=== PATIENT | male | born 1935 | race Caucasian/White ===

== ENCOUNTER 2021-12-06 14:58 | Inpatient (IN) | payer MEDICARE, OTHER ==
[2021-12-06 15:56] LABS: #Monocytes 0.6 10x3/uL (0.0-1.1); #Neutrophils 4.7 10x3/uL (1.5-8.4); %Basophils 0.5 % (0.0-2.0); %Eosinophils 0.5 % (0.0-6.0); %Lymphocytes 17.3 % (18.0-47.0); %Monocytes 9.3 % (0.0-10.0); %Neutrophils 72.1 % (40.0-75.0); Mean Corpuscular HGB CONC 32.8 g/dL (32.0-36.0); Mean Corpuscular Hemoglobin 30.8 pg (27.0-33.0); Mean Corpuscular Volume 93.8 fl (81.2-95.1); Mean Platelet Volume 11.5 fl (7.4-10.4); Platelet Count 166 10x3/uL (150-450); RBC Distribution Width 14.1 % (11.5-14.5); White Blood Cell (WBC) Count 6.6 10x3/uL (3.5-10.5)
[2021-12-06 16:21] LABS: ALT (SGPT) 55 U/L (8-55); AST (SGOT) 33 U/L (5-34); Albumin 3.5 g/dL (3.4-4.8); Alkaline Phosphatase 59 U/L (40-110); Anion Gap 12 mmol/L (10-20); BUN (Urea Nitrogen) 19 mg/dL (8.4-25.7); Bilirubin, Total 1.9 mg/dL (0.2-1.2); Calc. Creatinine Clearance 0 mL/min (70-130); Calcium 8.5 mg/dL (7.8-10.44); Carbon Dioxide 28 mmol/L (23-31); Chloride 106 mmol/L (98-107); Glucose 137 mg/dL (83-110); Magnesium 1.9 mg/dL (1.6-2.6); Potassium 4.4 mmol/L (3.5-5.1); Protein, Total 5.5 g/dL (5.8-8.1); Sodium 142 mmol/L (136-145)
[2021-12-06 16:41] LABS: CKMB 4.3 ng/mL (0-6.6)
[2021-12-06] MEDS ORDERED: Enoxaparin Sodium 80 MG/0.8 ML SYRINGE ONE (18:55)
[2021-12-06] MEDS ORDERED: Diltiazem 125 MG/25 ML ONE (20:21)
[2021-12-06 21:16] LABS: SARS-CoV-2 NAA Rapid Test Not Detected (NotDetected)
[2021-12-06] MEDS ORDERED: Diltiazem 125 MG in Sodium Chloride 0.9% 100 ML IVPB SCH (23:00)
[2021-12-06] MEDS ORDERED: Furosemide 40 MG/4 ML VIAL SLOW IVP SCH (23:00)
[2021-12-06 23:30] LABS: Troponin I 0.051 ng/mL (< 0.028)
[2021-12-07 01:22] VITALS: BMI 21.4
[2021-12-07 04:55] LABS: #Eosinphils 0.1 10x3/uL (0.0-0.5); #Monocytes 0.5 10x3/uL (0.0-1.1); #Neutrophils 3.6 10x3/uL (1.5-8.4); %Basophils 0.4 % (0.0-2.0); %Eosinophils 1.1 % (0.0-6.0); %Lymphocytes 22.5 % (18.0-47.0); %Monocytes 9.1 % (0.0-10.0); %Neutrophils 66.5 % (40.0-75.0); Hemoglobin 15.8 g/dL (13.5-17.5); Mean Corpuscular HGB CONC 32.7 g/dL (32.0-36.0); Mean Corpuscular Hemoglobin 30.9 pg (27.0-33.0); Mean Corpuscular Volume 94.3 fl (81.2-95.1); Platelet Count 161 10x3/uL (150-450); RBC Distribution Width 13.8 % (11.5-14.5); Red Blood Cell (RBC) Count 5.12 10x6/uL (4.32-5.72); White Blood Cell (WBC) Count 5.4 10x3/uL (3.5-10.5)
[2021-12-07 05:26] LABS: Anion Gap 16 mmol/L (10-20); BUN (Urea Nitrogen) 20 mg/dL (8.4-25.7); Calc. Creatinine Clearance 61 mL/min (70-130); Calcium 8.6 mg/dL (7.8-10.44); Carbon Dioxide 23 mmol/L (23-31); Chloride 108 mmol/L (98-107); Glucose 135 mg/dL (83-110); Potassium 3.7 mmol/L (3.5-5.1); Sodium 143 mmol/L (136-145)
[2021-12-07] MEDS ORDERED: Zolpidem Tartrate 5 MG TAB PO PRN (07:16)
[2021-12-07] MEDS ORDERED: Senokot S 8.6-50 MG TAB PO PRN (07:16)
[2021-12-07] MEDS ORDERED: Artificial Tear Sol 15 ML BOT EA EYE PRN (07:16)
[2021-12-07] MEDS ORDERED: Sodium Chloride 0.65% Nasal 44 ML BOT EA NARE PRN (07:16)
[2021-12-07] MEDS ORDERED: Loperamide HCl 2 MG CAP PO PRN (07:16)
[2021-12-07] MEDS ORDERED: Acetaminophen 500 MG TAB PO PRN (07:16)
[2021-12-07] MEDS ORDERED: hydrALAZINE 20 MG/ML VIAL SLOW IVP PRN (07:16)
[2021-12-07] MEDS ORDERED: Calcium Carbonate 500 MG ChewTAB PO PRN (07:16)
[2021-12-07] MEDS ORDERED: Ondansetron ODT 4 MG TAB PO PRN (07:16)
[2021-12-07] MEDS ORDERED: HYDROcodone/Acetaminophen 5/325 mg Tablet PO PRN (07:16)
[2021-12-07] MEDS ORDERED: Ondansetron PF 4 MG/2 ML Vial IVP PRN (07:16)
[2021-12-07] MEDS ORDERED: Hydrocerin (Eucerin) Cream 120 gm Jar TOP PRN (07:16)
[2021-12-07] MEDS ORDERED: Loratadine 10 MG TAB PO PRN (07:16)
[2021-12-07] MEDS ORDERED: Bisacodyl 5 MG TAB PO PRN (07:16)
[2021-12-07] MEDS ORDERED: GUAIFENESIN SF SOLN 200 MG/10 ML UDCUP PO PRN (07:16)
[2021-12-07] MEDS ORDERED: Enoxaparin Sodium 80 MG/0.8 ML SYRINGE SC SCH ×2 (08:00→21:00)
[2021-12-07] MEDS ORDERED: Potassium Chloride 20 MEQ TAB PO SCH (09:00)
[2021-12-07] MEDS ORDERED: Magnesium Oxide 400 MG TAB PO SCH (09:00)
[2021-12-07] MEDS ORDERED: Diltiazem 125 MG in Sodium Chloride 0.9% 100 ML IVPB SCH (09:20)
[2021-12-07] MEDS: Aspirin 81 mg Enteric Coated Tablet PO SCH (09:33)
[2021-12-07] MEDS: Famotidine 20 MG TAB PO SCH ×2 (09:33→20:48)
[2021-12-07] MEDS ORDERED: Furosemide 40 MG/4 ML VIAL SLOW IVP SCH ×2 (16:00→18:00)
[2021-12-07 17:11] LABS: Troponin I 0.038 ng/mL (< 0.028)
[2021-12-07] MEDS: Carvedilol 3.125 MG TAB PO SCH (18:03)
[2021-12-07] MEDS ORDERED: Apixaban 5 MG TAB PO SCH (21:00)
[2021-12-08 04:42] LABS: #Eosinphils 0.1 10x3/uL (0.0-0.5); #Monocytes 0.6 10x3/uL (0.0-1.1); #Neutrophils 3.3 10x3/uL (1.5-8.4); %Basophils 0.8 % (0.0-2.0); %Eosinophils 2.3 % (0.0-6.0); %Lymphocytes 23.2 % (18.0-47.0); %Monocytes 10.6 % (0.0-10.0); %Neutrophils 62.9 % (40.0-75.0); Hemoglobin 14.6 g/dL (13.5-17.5); Mean Corpuscular HGB CONC 32.9 g/dL (32.0-36.0); Mean Corpuscular Hemoglobin 30.9 pg (27.0-33.0); Mean Corpuscular Volume 94.1 fl (81.2-95.1); Mean Platelet Volume 11.9 fl (7.4-10.4); Platelet Count 143 10x3/uL (150-450); RBC Distribution Width 13.8 % (11.5-14.5); Red Blood Cell (RBC) Count 4.72 10x6/uL (4.32-5.72); White Blood Cell (WBC) Count 5.3 10x3/uL (3.5-10.5)
[2021-12-08 05:01] LABS: Magnesium 1.8 mg/dL (1.6-2.6); Phosphorus 3.4 mg/dL (2.3-4.7)
[2021-12-08] MEDS: Potassium Chloride 20 MEQ TAB PO SCH (06:52)
[2021-12-08] MEDS: Carvedilol 3.125 MG TAB PO SCH ×2 (06:52→15:57)
[2021-12-08] MEDS: Magnesium Oxide 400 MG TAB PO SCH (06:52)
[2021-12-08] MEDS: Famotidine 20 MG TAB PO SCH ×2 (06:53→20:22)
[2021-12-08] MEDS: Aspirin 81 mg Enteric Coated Tablet PO SCH (06:53)
[2021-12-08] MEDS: Furosemide 40 MG/4 ML VIAL SLOW IVP SCH ×2 (07:05→15:57)
[2021-12-08] MEDS ORDERED: Furosemide 40 MG TAB PO SCH (07:30)
[2021-12-08] MEDS ORDERED: Magnesium Oxide 400 MG TAB PO SCH (08:19)
[2021-12-08] MEDS ORDERED: PROPOFOL 20 ML ONE (09:00)
[2021-12-08] MEDS ORDERED: Lidocaine 1% PF 5 ML VIAL ONE (09:01)
[2021-12-08] MEDS ORDERED: Phenylephrine 10 MG/ML VIAL ONE (09:01)
[2021-12-08] MEDS ORDERED: Sodium Chloride 0.9% 50 ML ONE (09:02)
[2021-12-08] MEDS ORDERED: Enoxaparin Sodium 80 MG/0.8 ML SYRINGE SC SCH ×2 (09:30→21:00)
[2021-12-08 11:34] LABS: Anion Gap 10 mmol/L (10-20); BUN (Urea Nitrogen) 18 mg/dL (8.4-25.7); Calc. Creatinine Clearance 55 mL/min (70-130); Calcium 8.5 mg/dL (7.8-10.44); Carbon Dioxide 31 mmol/L (23-31); Chloride 104 mmol/L (98-107); Glucose 94 mg/dL (83-110); Potassium 4.4 mmol/L (3.5-5.1); Sodium 141 mmol/L (136-145)
[2021-12-09 04:25] LABS: Anion Gap 12 mmol/L (10-20); BUN (Urea Nitrogen) 20 mg/dL (8.4-25.7); Calc. Creatinine Clearance 53 mL/min (70-130); Calcium 8.5 mg/dL (7.8-10.44); Carbon Dioxide 30 mmol/L (23-31); Chloride 104 mmol/L (98-107); Glucose 92 mg/dL (83-110); Potassium 4.3 mmol/L (3.5-5.1); Sodium 142 mmol/L (136-145)
[2021-12-09 04:31] LABS: Hemoglobin 15.6 g/dL (13.5-17.5); INR-International Normal Ratio 1.1; Mean Corpuscular HGB CONC 32.4 g/dL (32.0-36.0); Mean Corpuscular Hemoglobin 30.6 pg (27.0-33.0); Mean Corpuscular Volume 94.3 fl (81.2-95.1); Mean Platelet Volume 12.1 fl (7.4-10.4); Platelet Count 163 10x3/uL (150-450); Prothrombin Time 11.7 sec (9.5-12.1); RBC Distribution Width 13.7 % (11.5-14.5); White Blood Cell (WBC) Count 4.7 10x3/uL (3.5-10.5)
[2021-12-09] MEDS: Furosemide 40 MG/4 ML VIAL SLOW IVP SCH (05:30)
[2021-12-09] MEDS: Potassium Chloride 20 MEQ TAB PO SCH (05:31)
[2021-12-09] MEDS: Famotidine 20 MG TAB PO SCH ×2 (05:32→17:58)
[2021-12-09] MEDS: Aspirin 81 mg Enteric Coated Tablet PO SCH (05:32)
[2021-12-09] MEDS: Magnesium Oxide 400 MG TAB PO SCH (05:32)
[2021-12-09] MEDS: Carvedilol 3.125 MG TAB PO SCH ×2 (05:32→17:56)
[2021-12-09] MEDS ORDERED: Lidocaine 1% PF 5 ML VIAL ONE ×2 (06:17→06:52)
[2021-12-09] MEDS ORDERED: Heparin 10,000 UNITS/ 10 ML VIAL ONE (06:18)
[2021-12-09] MEDS ORDERED: Nitroglycerin 50 MG/250 ML BOT 250 ML ONE (06:18)
[2021-12-09] MEDS ORDERED: Verapamil 5 MG/2 ML VIAL ONE (06:21)
[2021-12-09] MEDS ORDERED: Fentanyl 100 MCG/2 ML VIAL ONE (06:38)
[2021-12-09] MEDS ORDERED: Midazolam HCl 2 mg/2 ml Vial ONE (06:39)
[2021-12-09] MEDS ORDERED: Acetaminophen/Codeine 30-300mg Tablet PO PRN ×2 (08:13)
[2021-12-09] MEDS ORDERED: Sodium Chloride 0.9% 200 ML IV PRN (08:13)
[2021-12-09] MEDS ORDERED: Nitroglycerin 0.4 MG TAB (25 Tab Bottle) SL PRN (08:13)
[2021-12-09 13:17] VITALS: BP 105/59; TEMP 97.7
[2021-12-09] MEDS ORDERED: Rosuvastatin 20 MG TAB PO SCH (17:30)
[2021-12-10] MEDS ORDERED: Furosemide 40 MG TAB PO SCH (07:30)
[2021-12-10] MEDS ORDERED: Rosuvastatin 20 MG TAB PO SCH (21:00)
== END 2021-12-09 18:00 | disposition home or self-care (01) | DRG 280 ==
LOC: CSHERS 14:58 → CSHERHOLD 21:28 → CSHTELE 12-07 01:22
PROVIDERS: ADMIT Family Medicine; ATTEND Internal Medicine
PROC: 4A023N7 Measurement of Cardiac Sampling and Pressure, Left Heart, Percutaneous Approach (ICD-10-PCS; principal; 2021-12-09)
PROC: B2111ZZ Fluoroscopy of Multiple Coronary Arteries using Low Osmolar Contrast (ICD-10-PCS; 2021-12-09)
PROC: B2151ZZ Fluoroscopy of Left Heart using Low Osmolar Contrast (ICD-10-PCS; 2021-12-09)
DX: I48.91 Unspecified atrial fibrillation (principal); I21.A1 Myocardial infarction type 2; I50.21 Acute systolic (congestive) heart failure; I50.1 Left ventricular failure, unspecified; I11.0 Hypertensive heart disease with heart failure; I08.0 Rheumatic disorders of both mitral and aortic valves; I49.9 Cardiac arrhythmia, unspecified; I42.9 Cardiomyopathy, unspecified; I25.10 Atherosclerotic heart disease of native coronary artery without angina pectoris; I51.3 Intracardiac thrombosis, not elsewhere classified; K21.9 Gastro-esophageal reflux disease without esophagitis; Z20.822 Contact with and (suspected) exposure to COVID-19; E87.6 Hypokalemia; E83.42 Hypomagnesemia; Z90.49 Acquired absence of other specified parts of digestive tract; Z85.038 Personal history of other malignant neoplasm of large intestine; Z92.21 Personal history of antineoplastic chemotherapy; Z98.890 Other specified postprocedural states; Z87.891 Personal history of nicotine dependence
CPT/HCPCS: 36415; 71045; 71275; 80048; 80053; 82553; 83735; 83880; 84100; 84443; 84484; 85025; 85027; 85610; 85730; 93005; 93010; 93306; 93312; 93458; 99152; J1644; J1650; J1940; J2250; J2370; J2704; J3010; U0002

== ENCOUNTER 2022-01-14 11:01 | Outpatient (CLI) | payer MEDICARE ==
[2022-01-14 12:42] LABS: Anion Gap 10 mmol/L (10-20); BUN (Urea Nitrogen) 19 mg/dL (8.4-25.7); Calc. Creatinine Clearance 0 mL/min (70-130); Calcium 8.7 mg/dL (7.8-10.44); Carbon Dioxide 28 mmol/L (23-31); Chloride 107 mmol/L (98-107); Glucose 93 mg/dL (83-110); Potassium 4.8 mmol/L (3.5-5.1); Sodium 140 mmol/L (136-145)
[2022-01-14 20:20] LABS: SARS-CoV-2 PCR by NAA Not Detected (NotDetected)
== END 2022-01-14 11:02 | disposition home or self-care (01) ==
LOC: CSHLAB 11:01
PROVIDERS: ATTEND Specialist
DX: Z01.818 Encounter for other preprocedural examination (principal); Z20.822 Contact with and (suspected) exposure to COVID-19; I48.91 Unspecified atrial fibrillation
CPT/HCPCS: 80048; 93005; 93010; U0003; U0005

== ENCOUNTER → 2022-01-19 | Day surgery (SDC) | payer MEDICARE ==
[~2022-01-19] MED LIST: PROPOFOL 20 ML ONE
[2022-01-19 10:11] VITALS: BP 138/66; TEMP 97.8
== END ==
LOC: CSHSDC 09:03
PROVIDERS: ATTEND Specialist
DX: I48.11 Longstanding persistent atrial fibrillation (principal); I25.10 Atherosclerotic heart disease of native coronary artery without angina pectoris; I11.0 Hypertensive heart disease with heart failure; I50.22 Chronic systolic (congestive) heart failure; E03.9 Hypothyroidism, unspecified; Z87.891 Personal history of nicotine dependence; Z79.899 Other long term (current) drug therapy; Z79.01 Long term (current) use of anticoagulants; I35.1 Nonrheumatic aortic (valve) insufficiency; I34.0 Nonrheumatic mitral (valve) insufficiency
CPT/HCPCS: 92960; 93005; 93010; J2704

== ENCOUNTER 2022-05-24 10:50 | Outpatient (CLI) | payer MEDICARE | END 2022-05-24 10:51 | disposition home or self-care (01) | LOC: CSHCT 10:50 | PROVIDERS: ATTEND Nurse Practitioner | DX: Z01.810 Encounter for preprocedural cardiovascular examination (principal); I48.21 Permanent atrial fibrillation; R31.9 Hematuria, unspecified | CPT/HCPCS: 71275 ==

== ENCOUNTER 2023-12-20 13:43 | Inpatient (IN) | payer MEDICARE ==
[2023-12-20 14:50] LABS: #Monocytes 0.6 10x3/uL (0.0-1.1); #Neutrophils 3.7 10x3/uL (1.5-8.4); %Basophils 0.8 % (0.0-2.0); %Eosinophils 0.8 % (0.0-6.0); %Lymphocytes 14.6 % (18.0-47.0); %Neutrophils 72.8 % (40.0-75.0); Hematocrit 47.2 % (38.8-50.0); Mean Corpuscular HGB CONC 33.9 g/dL (32.0-36.0); Mean Corpuscular Hemoglobin 31.6 pg (27.0-33.0); Mean Corpuscular Volume 93.1 fl (81.2-95.1); Mean Platelet Volume 12.2 fl (7.4-10.4); Platelet Count 127 10x3/uL (150-450); RBC Distribution Width 15.7 % (11.5-14.5); Red Blood Cell (RBC) Count 5.07 10x6/uL (4.32-5.72)
[2023-12-20 15:05] LABS: SARS-CoV-2 NAA Rapid Test Not Detected (NotDetected)
[2023-12-20 15:08] LABS: ALT (SGPT) 38 U/L (8-55); AST (SGOT) 43 U/L (5-34); Albumin 3.4 g/dL (3.4-4.8); Alkaline Phosphatase 104 U/L (40-110); Anion Gap 11 mmol/L (10-20); BUN (Urea Nitrogen) 23 mg/dL (8.4-25.7); Bilirubin, Total 1.4 mg/dL (0.2-1.2); Calc. Creatinine Clearance 0 mL/min (70-130); Calcium 8.4 mg/dL (7.8-10.44); Carbon Dioxide 25 mmol/L (23-31); Chloride 108 mmol/L (98-107); Estimated GFR 81; Globulin 2.1 g/dL (2.4-3.5); Glucose 111 mg/dL (83-110); Magnesium 2.1 mg/dL (1.6-2.6); Potassium 4.4 mmol/L (3.5-5.1); Protein, Total 5.5 g/dL (5.8-8.1); Sodium 140 mmol/L (136-145)
[2023-12-20 15:12] LABS: Troponin I 0.019 ng/mL (< 0.028)
[2023-12-20] MEDS ORDERED: Furosemide 40 MG (4 mL) VIAL ONE (15:32)
[2023-12-20] MEDS ORDERED: Senokot S 8.6-50 MG TAB PO PRN (15:41)
[2023-12-20] MEDS ORDERED: Loperamide HCl 2 MG CAP PO PRN (15:41)
[2023-12-20] MEDS ORDERED: HYDROcodone/Acetaminophen 5/325 mg Tablet PO PRN ×2 (15:41)
[2023-12-20] MEDS ORDERED: Calcium Carbonate 500 MG ChewTAB PO PRN (15:41)
[2023-12-20] MEDS ORDERED: Ondansetron PF 4 MG/2 ML Vial IVP PRN (15:41)
[2023-12-20] MEDS ORDERED: Zolpidem Tartrate 5 MG TAB PO PRN (15:41)
[2023-12-20] MEDS: Sacubitril 24MG/Valsartan 26 MG TAB PO SCH (21:20)
[2023-12-20] MEDS: Rosuvastatin 20 MG TAB PO SCH (21:20)
[2023-12-21 03:55] LABS: #Eosinphils 0.1 10x3/uL (0.0-0.5); #Monocytes 0.4 10x3/uL (0.0-1.1); #Neutrophils 2.2 10x3/uL (1.5-8.4); %Eosinophils 1.6 % (0.0-6.0); %Monocytes 10.9 % (0.0-10.0); %Neutrophils 57.2 % (40.0-75.0); Hematocrit 45.1 % (38.8-50.0); Hemoglobin 15.1 g/dL (13.5-17.5); Mean Corpuscular HGB CONC 33.5 g/dL (32.0-36.0); Mean Corpuscular Hemoglobin 31.3 pg (27.0-33.0); Mean Corpuscular Volume 93.4 fl (81.2-95.1); Mean Platelet Volume 11.8 fl (7.4-10.4); Platelet Count 111 10x3/uL (150-450); RBC Distribution Width 15.5 % (11.5-14.5); Red Blood Cell (RBC) Count 4.83 10x6/uL (4.32-5.72); White Blood Cell (WBC) Count 3.9 10x3/uL (3.5-10.5)
[2023-12-21 04:06] LABS: ALT (SGPT) 31 U/L (8-55); AST (SGOT) 34 U/L (5-34); Albumin 3.1 g/dL (3.4-4.8); Alkaline Phosphatase 98 U/L (40-110); Anion Gap 13 mmol/L (10-20); BUN (Urea Nitrogen) 21 mg/dL (8.4-25.7); Bilirubin, Total 1.4 mg/dL (0.2-1.2); Calc. Creatinine Clearance 0 mL/min (70-130); Calcium 8.4 mg/dL (7.8-10.44); Carbon Dioxide 26 mmol/L (23-31); Chloride 107 mmol/L (98-107); Estimated GFR 85; Globulin 2.1 g/dL (2.4-3.5); Glucose 92 mg/dL (83-110); Potassium 3.7 mmol/L (3.5-5.1); Protein, Total 5.2 g/dL (5.8-8.1); Sodium 142 mmol/L (136-145)
[2023-12-21 05:19] VITALS: BMI 20.3
[2023-12-21] MEDS: Furosemide 40 MG (4 mL) VIAL SLOW IVP SCH ×2 (06:45→16:25)
[2023-12-21] MEDS ORDERED: Enoxaparin 40 MG (0.4 mL) SYRINGE SC SCH (09:00)
[2023-12-21] MEDS ORDERED: Communication Order-Pharmacy FS SCH (09:00)
[2023-12-21] MEDS: Sacubitril 24MG/Valsartan 26 MG TAB PO SCH ×2 (10:17→22:09)
[2023-12-21] MEDS: Nebivolol HCl 5 MG TAB PO SCH (10:17)
[2023-12-21] MEDS: Aspirin 81 mg Enteric Coated Tablet PO SCH (10:17)
[2023-12-21] MEDS: Empagliflozin 10 MG TAB PO SCH (10:17)
[2023-12-21] MEDS: Potassium Chloride 20 MEQ TAB PO SCH (11:37)
[2023-12-21] MEDS: Rosuvastatin 20 MG TAB PO SCH (22:09)
[2023-12-22 03:30] LABS: INR-International Normal Ratio 1.1; PTT 29.5 sec (22.0-33.0)
[2023-12-22 03:32] LABS: #Eosinphils 0.1 10x3/uL (0.0-0.5); #Monocytes 0.4 10x3/uL (0.0-1.1); #Neutrophils 2.2 10x3/uL (1.5-8.4); %Lymphocytes 29.2 % (18.0-47.0); %Monocytes 10.7 % (0.0-10.0); %Neutrophils 56.8 % (40.0-75.0); Hematocrit 49.6 % (38.8-50.0); Hemoglobin 16.5 g/dL (13.5-17.5); Mean Corpuscular HGB CONC 33.3 g/dL (32.0-36.0); Mean Corpuscular Hemoglobin 31.3 pg (27.0-33.0); Mean Corpuscular Volume 94.1 fl (81.2-95.1); Mean Platelet Volume 11.7 fl (7.4-10.4); Platelet Count 123 10x3/uL (150-450); RBC Distribution Width 15.3 % (11.5-14.5); Red Blood Cell (RBC) Count 5.27 10x6/uL (4.32-5.72); White Blood Cell (WBC) Count 3.9 10x3/uL (3.5-10.5)
[2023-12-22 03:43] LABS: ALT (SGPT) 38 U/L (8-55); AST (SGOT) 44 U/L (5-34); Albumin 3.2 g/dL (3.4-4.8); Alkaline Phosphatase 107 U/L (40-110); Anion Gap 14 mmol/L (10-20); BUN (Urea Nitrogen) 26 mg/dL (8.4-25.7); Bilirubin, Total 1.4 mg/dL (0.2-1.2); Calc. Creatinine Clearance 0 mL/min (70-130); Calcium 8.7 mg/dL (7.8-10.44); Carbon Dioxide 30 mmol/L (23-31); Chloride 105 mmol/L (98-107); Estimated GFR 75; Globulin 2.1 g/dL (2.4-3.5); Glucose 82 mg/dL (83-110); Potassium 4.3 mmol/L (3.5-5.1); Protein, Total 5.3 g/dL (5.8-8.1); Sodium 145 mmol/L (136-145)
[2023-12-22 05:42] VITALS: TEMP 98
[2023-12-22] MEDS: Furosemide 40 MG (4 mL) VIAL SLOW IVP SCH (06:27)
[2023-12-22] MEDS ORDERED: Nitroglycerin 50 MG/250 ML BOT 250 ML ONE (06:55)
[2023-12-22] MEDS ORDERED: Heparin 10,000 UNITS/ 10 ML VIAL ONE (06:55)
[2023-12-22] MEDS ORDERED: Lidocaine 1% PF 5 ML VIAL ONE (06:55)
[2023-12-22] MEDS ORDERED: Verapamil 5 MG/2 ML VIAL ONE (06:55)
[2023-12-22] MEDS ORDERED: Adenosine 6 mg (2 mL) VIAL ONE (06:57)
[2023-12-22] MEDS ORDERED: Atropine Sulfate 1 mg/1 ml Vial ONE (06:59)
[2023-12-22] MEDS ORDERED: fentaNYL 50 mcg/mL 1 mL Vial ONE (07:07)
[2023-12-22] MEDS ORDERED: Midazolam HCl 2 mg/2 ml Vial ONE (07:07)
[2023-12-22] MEDS ORDERED: Acetaminophen/Codeine 30-300mg Tablet PO PRN ×2 (09:26)
[2023-12-22] MEDS ORDERED: Sodium Chloride 0.9% 200 ML IV PRN (09:26)
[2023-12-22] MEDS ORDERED: Nitroglycerin 0.4 MG TAB (25 Tab Bottle) SL PRN (09:26)
[2023-12-22] MEDS: Empagliflozin 10 MG TAB PO SCH (10:14)
[2023-12-22] MEDS: Sacubitril 24MG/Valsartan 26 MG TAB PO SCH (10:14)
[2023-12-22] MEDS: Potassium Chloride 20 MEQ TAB PO SCH (10:14)
[2023-12-22] MEDS: Nebivolol HCl 5 MG TAB PO SCH (10:14)
[2023-12-22] MEDS: Aspirin 81 mg Enteric Coated Tablet PO SCH (10:19)
[2023-12-22 12:41] VITALS: BP 131/64
[2023-12-22] MEDS ORDERED: Iopamidol 300 61% 100 ML VIAL FS ONE (13:47)
[2023-12-22] MEDS ORDERED: Ranolazine 500 MG ER.TAB PO SCH (21:00)
[2023-12-23] MEDS ORDERED: Furosemide 20 MG TAB PO SCH (09:00)
== END 2023-12-22 14:40 | disposition home or self-care (01) | DRG 286 ==
LOC: CSHERS 13:43 → CSHTELE 15:40 → OBSVTOIN 15:40
PROVIDERS: ADMIT Specialist; ATTEND Specialist
PROC: 4A023N7 Measurement of Cardiac Sampling and Pressure, Left Heart, Percutaneous Approach (ICD-10-PCS; principal; 2023-12-22)
PROC: B2111ZZ Fluoroscopy of Multiple Coronary Arteries using Low Osmolar Contrast (ICD-10-PCS; 2023-12-22)
PROC: B2151ZZ Fluoroscopy of Left Heart using Low Osmolar Contrast (ICD-10-PCS; 2023-12-22)
PROC: B241ZZ3 Ultrasonography of Multiple Coronary Arteries, Intravascular (ICD-10-PCS; 2023-12-22)
DX: I11.0 Hypertensive heart disease with heart failure (principal); I50.23 Acute on chronic systolic (congestive) heart failure; I48.11 Longstanding persistent atrial fibrillation; E03.9 Hypothyroidism, unspecified; E78.5 Hyperlipidemia, unspecified; I25.10 Atherosclerotic heart disease of native coronary artery without angina pectoris; I25.5 Ischemic cardiomyopathy; I34.0 Nonrheumatic mitral (valve) insufficiency; Z90.49 Acquired absence of other specified parts of digestive tract; Z90.89 Acquired absence of other organs; Z98.890 Other specified postprocedural states; Z87.891 Personal history of nicotine dependence; Z79.899 Other long term (current) drug therapy; Z79.82 Long term (current) use of aspirin
CPT/HCPCS: 36415; 71045; 80053; 83735; 83880; 84484; 85025; 85610; 85730; 92978; 92979; 93005; 93458; 96374; 99152; 99153; C1753; C1769; C1887; C1894; J0153; J0461; J1644; J1650; J1940; J2250; J3010; Q9967